=== PATIENT | female | born 1995 | race Caucasian/White ===

== ENCOUNTER 2016-11-03 15:17 | Emergency (ER) | payer SELFPAY ==
[2016-11-03 15:19] VITALS: BP 122/67; PULSE 89; RESP 12; TEMP 98; O2SAT 98
--- NOTE | 2016-11-03 16:20 | PD ---
HPI Chief Complaint: Medication Refill Request Time Seen by Provider: 16:14 Travel History International Travel<30 days: No Contact w/Intl Traveler<30days: No Traveled to known affect area: No History of Present Illness HPI Patient comes requesting refills of her psychiatric medications that she only recently relocated to the area and is unable get into [facility] until the third of next month. Patient states she has tried to go there as a walk-in multiple occasions is not been able be seen. Patient she is on medications for anxiety and depression. Patient reports her medications are Celexa 40 mg daily , Vistaril 25 mg every 4 hours when necessary anxiety, and trazodone 50 mg at night to help her sleep. Denies any chest pain, shortness breath, fevers, nausea, vomiting, abdominal pain, or . PFSH Past Medical History Anxiety: Yes Depression: Yes ?: Not Social History Alcohol Use: No Tobacco Use: Yes Substance Use: No (reformed) Allergies-Medications (Allergen,Severity, Reaction): Coded Allergies: Sulfa (Verified Allergy, Severe, Anaphylaxis, 11/03/16) Reported Meds & Prescriptions Reported Meds & Active Scripts Active Trazodone (Trazodone HCl) 50 Mg Tab 50 Mg PO HS Vistaril (Hydroxyzine Pamoate) 25 Mg Cap 25 Mg PO Q6H PRN Celexa (Citalopram Hydrobromide) 40 Mg Tab 40 Mg PO DAILY Review of Systems Except as stated in HPI: all other systems reviewed are Neg Physical Exam Narrative GENERAL: Well-developed, well nourished, in no acute distress, and non-ill appearing. SKIN: Warm and dry. HEAD: Atraumatic. Normocephalic. EYES: Pupils equal and round. EOMI. No scleral icterus. No injection or drainage. ENT: No nasal bleeding or discharge. Mucous membranes pink and moist. NECK: Trachea midline. Supple. No nuclear rigidity. RESPIRATORY: No accessory muscle use. No respiratory distress. MUSCULOSKELETAL: No obvious deformities. No clubbing. No cyanosis. No edema. Full range of motion. NEUROLOGICAL: Awake and alert. No obvious cranial nerve deficits. Motor grossly within normal limits. Normal speech. PSYCHIATRIC: Appropriate mood and affect; insight and judgment normal. Data Data Last Documented VS Vital Signs Date Time Temp Pulse Resp B/P Pulse Ox O2 Delivery O2 Flow Rate FiO2 1/10/17 15:19 98.0 89 12 122/67 98 Room Air MDM Medical Decision Making Medical Screen Exam Complete: Yes Emergency Medical Condition: No Differential Diagnosis Anxiety, depression, medication refill, other Narrative Course Patient in no obvious distress upon re-evaluation. Patient was asked if they wanted to speak to my attending, which the patient did not wish to do at this time. Any questions/concerns in reference to patient diagnosis/condition discussed and clarified prior to patient's discharge. Reinforced sheer importance of close follow up with patient's primary physician or primary care clinic. Instructed patient to return to ED immediately, if symptoms return/ worsen. Pt showed understanding of above instructions. Further instructions and recommendations were detailed in discharge paperwork. Pt ambulated without difficulty out of ED at discharge. Diagnosis Primary Impression: Medication refill Referrals: [facility] Patient Instructions: General Instructions, Medication Refill, ED Additional Instructions: Follow-up with Derek Camacho as scheduled and for additional refills. Take all medication as prescribed. Return to the emergency department if symptoms get worse. Med/Other Pt SpecificInfo: Prescription(s) given Scripts Trazodone 50 Mg Tab50 Mg PO HS #15 TAB Ref 0 Prov:Tasha Pavon MD 11/03/16 Hydroxyzine Pamoate (Vistaril)25 Mg Cap25 Mg PO Q6H PRN (ANXIETY) #30 CAP Ref 0 Prov:Tasha Pavon MD 11/03/16 Citalopram (Celexa)40 Mg Tab40 Mg PO DAILY #30 TAB Ref 0 Prov:Tasha Pavon MD 11/03/16 Disposition: 01 DISCHARGE HOME Condition: Stable Milan Lopez Nov 03, 2016 16:20
[2016-11-03] MEDS ORDERED: VIST25CA PO (16:22)
[2016-11-03] MEDS ORDERED: TRAZ50TA12 PO (16:22)
[2016-11-03] MEDS ORDERED: CELE40TA PO (16:22)
== END 2016-11-03 16:37 | disposition home or self-care (01) ==
LOC: NEPB 15:17
DX: F32.9 Major depressive disorder, single episode, unspecified (principal); F41.9 Anxiety disorder, unspecified; Z76.0 Encounter for issue of repeat prescription
CPT/HCPCS: 99281

== ENCOUNTER 2017-10-27 18:50 | Emergency (ER) | payer MEDICAID ==
[~2017-10-27] VITALS: Ht 167.6 cm; Wt 68.2 kg
[~2017-10-27 18:50] MED LIST: CELE40TA PO; TRAZ50TA12 PO; VIST25CA PO
[2017-10-27 18:59] VITALS: BP 143/65; PULSE 80; RESP 16; TEMP 98.7; O2SAT 99
--- NOTE | 2017-10-27 19:49 | PD ---
HPI Chief Complaint: Related Problem Time Seen by Provider: 19:49 Travel History International Travel<30 days: No Contact w/Intl Traveler<30days: No Traveled to known affect area: No History of Present Illness HPI 22-year-old female who is approximately 11 weeks gestation presents to emergency department for evaluation of vaginal spotting yesterday and some today. Patient did have intercourse last evening. Denies any heavy bleeding. No significant abdominal cramping or pain. Denies any urinary symptoms. No recent illnesses, fever, or chills. Patient has no other vaginal discharge. Patient has no other symptoms to report at this time. PFS Past Medical History Anxiety: Yes Depression: Yes ?: Social History Alcohol Use: No Tobacco Use: Yes Substance Use: No (reformed) Allergies-Medications (Allergen,Severity, Reaction): Coded Allergies: Sulfa (Sulfonamide Antibiotics) (Unverified Allergy, Severe, Anaphylaxis, 06/08/17) Reported Meds & Prescriptions Reported Meds & Active Scripts Active Trazodone (Trazodone HCl) 50 Mg Tab 50 Mg PO HS Vistaril (Hydroxyzine Pamoate) 25 Mg Cap 25 Mg PO Q6H PRN Celexa (Citalopram Hydrobromide) 40 Mg Tab 40 Mg PO DAILY Review of Systems Except as stated in HPI: all other systems reviewed are Neg Physical Exam Narrative GENERAL: Well-nourished, well-developed female patient, ambulatory and in no acute distress. SKIN: Focused skin assessment warm/dry. HEAD: Normocephalic. EYES: No scleral icterus. No injection or drainage. NECK: Supple, trachea midline. No JVD or lymphadenopathy. CARDIOVASCULAR: Regular rate and rhythm without murmurs, gallops, or rubs. RESPIRATORY: Breath sounds equal bilaterally. No accessory muscle use. GASTROINTESTINAL: Abdomen soft, non-tender, nondistended. No guarding. No rebound tenderness. GENITOURINARY: Normal external genitalia without lesions or erythema. Vaginal vault without blood or drainage. Cervical os was closed without drainage. No cervical motion tenderness. Uterus nontender and nonenlarged. Bilateral adnexa nontender without masses. MUSCULOSKELETAL: No cyanosis, or edema. BACK: Nontender without obvious deformity. No CVA tenderness. Data Data Last Documented VS Vital Signs Date Time Temp Pulse Resp B/P (MAP) Pulse Ox O2 Delivery O2 Flow Rate FiO2 1/3/18 22:30 10/27/17 18:59 98.7 80 16 99 Orders Orders Beta Hcg (Quant/Titer) (10/27/17 19:03) Complete Blood Count With Diff (10/27/17 19:03) Basic Metabolic Panel (Bmp) (10/27/17 19:03) Complete Rh (10/27/17 19:03) Urinalysis - C+S If Indicated (10/27/17 19:03) Ed Urine Pregnancytest Poc (10/27/17 19:03) Gc And Chlamydia Pcr (10/27/17 19:53) Wet Prep Profile (10/27/17 19:53) Us Pelvis (Ques Pr/Ect)W Trans (10/27/17 ) Ed Discharge Order (10/27/17 22:27) Labs Laboratory Tests Test 10/27/17 19:32 10/27/17 19:52 10/27/17 20:20 10/27/17 20:22 Urine Color YELLOW Urine Turbidity HAZY Urine pH 7.0 Urine Specific Rupert 1.014 Urine Protein NEG mg/dL Urine Glucose (UA) NEG mg/dL Urine Ketones NEG mg/dL Urine Occult Blood NEG Urine Nitrite NEG Urine Bilirubin NEG Urine Urobilinogen LESS THAN 2.0 MG/DL Urine Leukocyte Esterase NEG Urine RBC 6 /hpf Urine WBC 3 /hpf Urine Squamous Epithelial Cells 4 /hpf Urine Bacteria OCC /hpf Urine Mucus FEW /lpf Microscopic Urinalysis Comment CULT NOT INDICATED White Blood Count 9.5 TH/MM3 Red Blood Count 3.97 MIL/MM3 Hemoglobin 12.5 GM/DL Hematocrit 36.1 % Mean Corpuscular Volume 91.0 FL Mean Corpuscular Hemoglobin 31.5 PG Mean Corpuscular Hemoglobin Concent 34.6 % Red Cell Distribution Width 12.8 % Platelet Count 224 TH/MM3 Mean Platelet Volume 7.8 FL Neutrophils (%) (Auto) 64.4 % Lymphocytes (%) (Auto) 24.5 % Monocytes (%) (Auto) 5.7 % Eosinophils (%) (Auto) 4.8 % Basophils (%) (Auto) 0.6 % Neutrophils # (Auto) 6.1 TH/MM3 Lymphocytes # (Auto) 2.3 TH/MM3 Monocytes # (Auto) 0.5 TH/MM3 Eosinophils # (Auto) 0.5 TH/MM3 Basophils # (Auto) 0.1 TH/MM3 CBC Comment DIFF FINAL Differential Comment Blood Urea Nitrogen 6 MG/DL Creatinine 0.52 MG/DL Random Glucose 115 MG/DL Calcium Level 9.0 MG/DL Sodium Level 137 MEQ/L Potassium Level 3.6 MEQ/L Chloride Level 104 MEQ/L Carbon Dioxide Level 23.6 MEQ/L Anion Gap 9 MEQ/L Estimat Glomerular Filtration Rate 147 ML/MIN Human Chorionic Gonadotropin, Quant 43611 MIU/ML Chlamydia trachomatis DNA (PCR) NOT DETECTED Neisseria gonorrhoeae DNA (PCR) NOT DETECTED Clue Cells (Wet Prep) NONE SEEN Vaginal Trichomonas (Wet Prep) NONE SEEN Vaginal Yeast (Wet Prep) NONE SEEN MDM Medical Decision Making Medical Screen Exam Complete: Yes Emergency Medical Condition: Yes Medical Record Reviewed: Yes Differential Diagnosis Postcoital bleeding versus vaginal bleeding versus threatened miscarriage versus missed Narrative Course 22-year-old female presents to emergency department for evaluation of vaginal spotting yesterday and today, 2 separate incidents. On pelvic exam, there is no blood in the vaginal vault. Cervical os is closed. Lab work is ordered as well as ultrasound. Laboratory Tests Test 10/27/17 19:32 10/27/17 19:52 10/27/17 20:20 10/27/17 20:22 Urine Color YELLOW Urine Turbidity HAZY Urine pH 7.0 Urine Specific Rupert 1.014 Urine Protein NEG mg/dL Urine Glucose (UA) NEG mg/dL Urine Ketones NEG mg/dL Urine Occult Blood NEG Urine Nitrite NEG Urine Bilirubin NEG Urine Urobilinogen LESS THAN 2.0 MG/DL Urine Leukocyte Esterase NEG Urine RBC 6 /hpf Urine WBC 3 /hpf Urine Squamous Epithelial Cells 4 /hpf Urine Bacteria OCC /hpf Urine Mucus FEW /lpf Microscopic Urinalysis Comment CULT NOT INDICATED White Blood Count 9.5 TH/MM3 Red Blood Count 3.97 MIL/MM3 Hemoglobin 12.5 GM/DL Hematocrit 36.1 % Mean Corpuscular Volume 91.0 FL Mean Corpuscular Hemoglobin 31.5 PG Mean Corpuscular Hemoglobin Concent 34.6 % Red Cell Distribution Width 12.8 % Platelet Count 224 TH/MM3 Mean Platelet Volume 7.8 FL Neutrophils (%) (Auto) 64.4 % Lymphocytes (%) (Auto) 24.5 % Monocytes (%) (Auto) 5.7 % Eosinophils (%) (Auto) 4.8 % Basophils (%) (Auto) 0.6 % Neutrophils # (Auto) 6.1 TH/MM3 Lymphocytes # (Auto) 2.3 TH/MM3 Monocytes # (Auto) 0.5 TH/MM3 Eosinophils # (Auto) 0.5 TH/MM3 Basophils # (Auto) 0.1 TH/MM3 CBC Comment DIFF FINAL Differential Comment Blood Urea Nitrogen 6 MG/DL Creatinine 0.52 MG/DL Random Glucose 115 MG/DL Calcium Level 9.0 MG/DL Sodium Level 137 MEQ/L Potassium Level 3.6 MEQ/L Chloride Level 104 MEQ/L Carbon Dioxide Level 23.6 MEQ/L Anion Gap 9 MEQ/L Estimat Glomerular Filtration Rate 147 ML/MIN Human Chorionic Gonadotropin, Quant 96274 MIU/ML Chlamydia trachomatis DNA (PCR) NOT DETECTED Neisseria gonorrhoeae DNA (PCR) NOT DETECTED Clue Cells (Wet Prep) NONE SEEN Vaginal Trichomonas (Wet Prep) NONE SEEN Vaginal Yeast (Wet Prep) NONE SEEN Last Impressions Pelvis Ultrasound 10/27/17 0000 Signed Impressions: Service Date/Time: Friday, October 27, 2017 21:09 - CONCLUSION: demise. KRuby Cox MD I have discussed the findings with my attending physician and then I discussed them with the patient. I have reviewed with her what to expect. Patient appears to be in a state of shock with very abrupt responses and requesting to leave. I have given her the [employer] educational speech language clinician's information and encouraged prompt follow-up. She agrees to return immediately with any acute worsening of symptoms. Diagnosis Primary Impression: demise before 20 weeks with retention of fetus Referrals: Clarke Granado MD Chipping Machine Operator Patient Instructions: General Instructions, Intrauterine Demise (ED) Additional Instructions: Follow-up with [employer] [employer] [facility]ARE SYSTEM[employer] this week; call for an appointment Return immediately to the emergency department with any acute worsening symptoms Disposition: 01 DISCHARGE HOME Condition: Stable Marlee Archuleta Oct 27, 2017 19:49
[2017-10-27 20:37] LABS: BACTERIA, URINE OCC /hpf; BILIRUBIN, URINE NEG (NEG); BLOOD, URINE NEG (NEG); GLUCOSE,URINE NEG (NEG); KETONE, URINE NEG (NEG); MUCUS URINE FEW /lpf (OCC); NITRITE,URINE NEG (NEG); SQUAMOUS EPITHELIAL CELL URINE 4 /hpf (0-5); URINE COLOR YELLOW (YELLW/STRAW); URINE LEUKOCYTE ESTERASE NEG (NEG)
[2017-10-27 20:40] LABS: AUTOMATED NEUTROPHIL # 6.1 TH/MM3 (1.8-7.7); BASOPHIL # 0.1 TH/MM3 (0-0.2); BASOPHIL % 0.6 % (0.0-2.0); EOSINOPHIL # 0.5 TH/MM3 (0-0.4); EOSINOPHIL % 4.8 % (0.0-4.0); HEMATOCRIT 36.1 % (35.0-46.0); HEMOGLOBIN 12.5 GM/DL (11.6-15.3); LYMPH % 24.5 % (9.0-44.0); LYMPHOCYTE # 2.3 TH/MM3 (1.0-4.8); MEAN CORPUSCULAR HEMOGLOBIN 31.5 PG (27.0-34.0); MEAN CORPUSCULAR HGB CONC 34.6 % (32.0-36.0); MEAN PLATELET VOLUME 7.8 FL (7.0-11.0); MONO % 5.7 % (0.0-8.0); MONOCYTE # 0.5 TH/MM3 (0-0.9); NEUT % 64.4 % (16.0-70.0); PLATELET COUNT 224 TH/MM3 (150-450); RED BLOOD COUNT 3.97 MIL/MM3 (4.00-5.30); RED CELL DISTRIBUTION WIDTH 12.8 % (11.6-17.2); WHITE BLOOD COUNT 9.5 TH/MM3 (4.0-11.0)
[2017-10-27 21:45] LABS: BICARBONATE 23.6 MEQ/L (21.0-32.0); CREATININE 0.52 MG/DL (0.50-1.00)
--- NOTE | 2017-10-27 22:17 | RADRPT ---
EXAM DATE/TIME: 10/27/2017 21:09 [place] COMPARISON: No previous studies available for comparison. INDICATIONS : Bleeding. LAB(S): Beta-hC MEDICAL HISTORY : Depression. Anxiety. Substance abuse. Tobacco use. SURGICAL HISTORY : None. ENCOUNTER: Initial ACUITY: 2 days PAIN SCORE: 0/10 LOCATION: Bilateral pelvis MEASUREMENTS: UTERUS: 11.4 x 9.0 x 6.2 cm ENDOMETRIAL STRIPE: >20 mm RIGHT OVARY: 2.3 x 2.7 x 1.4 cm LEFT OVARY: 3.2 x 2.6 x 1.4 cm FREE FLUID: No CROWN RUMP LENGTH: 2.5 = 9 WKS 1 DAYS FINDINGS: Intrauterine gestational sac is present measures 4.7 cm corresponds to 10 weeks and 3 days. [place] lum p length corresponds to 9 weeks and one day and there is no heart beat. CONCLUSION: demise. Barbara Cox MD on October 27, 2017 at 22:13 Board Certified Radiologist. This report was verified electronically.
[2017-10-29] MEDS ORDERED: IBUP-232 PO (17:12)
== END 2017-10-27 22:40 | disposition home or self-care (01) ==
LOC: NEPD 18:50
DX: O02.1 Missed abortion (principal); O99.331 Smoking (tobacco) complicating pregnancy, first trimester; Z3A.11 11 weeks gestation of pregnancy
CPT/HCPCS: 76700; 76817; 80048; 81001; 84702; 84703; 85025; 86901; 87210; 87491; 87591; 99285

== ENCOUNTER → 2017-10-29 | Day surgery (SDC) | payer MEDICAID ==
[~2017-10-29] VITALS: Ht 167.6 cm; Wt 69.5 kg
[~2017-10-29] MED LIST changes: +*MEPERIDINE 25 MG INJ VIAL PERIprocedural Use ONLY ONE; +*morphine SULFATE 4 MG/ML PERIprocedure ONLY ONE; +ACETAMINOPHEN 1000 MG/100 ML 100 ML IV ONE; +CHLORHEXIDINE GLUCONATE 2 % 1 PACK (2 CLOTHS) TOPICAL PRN; +DEXAMETHASONE SOD PHOS 4 MG/ML VIAL IV ONE; +DO NOT ADM ANY ANTICOAGULANT DRUGS PRN; +IBUP-232 PO; +IBUPROFEN 600 MG TAB PO ONE; +LACTATED RINGER'S 1000 ML IV PRN; +LIDOCAINE HCL 1% PF 5 ML SYRINGE OTHER ONE; +MEPERIDINE HCL 50 MG/ML VIAL IM PRN; +METOPROLOL TARTRATE 25 MG TAB PO PRN; +MIDAZOLAM HCL 2 MG/2 ML VIAL ONE; +MORPHINE SULFATE 4 MG/ML INJ ONE; +ONDANSETRON HCL 4 MG/2 ML VIAL IV PUSH ONE; +ONDANSETRON HCL 4 MG/2 ML VIAL IV PUSH PRN; +OXYTOCIN 10 UNIT/ML AMP ONE; +POVIDONE IODINE 5% (ANTISEPSIS KIT) 4 APPLICATIONS EACH NARE PRN; +PROPOFOL 200 MG/20 ML AMP IV ONE; +SODIUM CHLORID 0.9% 500 ML IV PRN; +ceFAZolin 1,000 MG/NS 100 ML IV SCH
--- NOTE | 2017-10-29 12:09 | MH ---
cc: CONNIE MEJIAS DATE OF ADMISSION: 10/29/2017 CHIEF COMPLAINT Missed AB. HISTORY OF PRESENT CONDITION The patient is a 22-year-old single white female, 1, para 0, who would be 11-5/7 weeks by LMP but has a nonviable, 9-week gestation without a heartbeat. This was diagnosed in the emergency room two days ago and then she came to our office today. 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 She denies any history of IV drug abuse. She historically has snorted these illicit substances. She did have two episodes of single-time use, one a month ago and one several months ago. PAST MEDICAL HISTORY She has had a history of kidney stones and lithotripsy. SOCIAL HISTORY She smokes 1/2-pack of cigarettes per day. She denies any alcohol use. She does not think she has hepatitis C. 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 REVIEW OF SYSTEMS She has been n.p.o. since last night. She has had no recent colds or infections. She does desire contraception as this was not a planned . She is not bleeding actively at this time. She is not having cramping at this time. PHYSICAL EXAMINATION VITAL SIGNS: Her weight is 150. Her height is 5'6", her blood pressure is 120/80. NECK: She has no thyroid enlargement. LUNGS: Clear. HEART: Rate and rhythm are regular. PELVIC EXAM: Consistent with the ultrasound done in our office today with a closed cervix, a 10-week fundus and no heart rate. EXTREMITIES: Unremarkable. IMPRESSION A 22-year-old with missed AB. SECONDARY DIAGNOSIS Opioid dependency, currently attempting abstinence-based living. PLAN 1. Proceed with a D&C. 2. We will do labs for Rh typing and hepatitis C, urine drug screen. 3. After the D&C she will follow up in my office for contraception and to further discuss abstinence-based versus medication-based recovery. Connie Mejias MD PPC/SSB /11:37 AM /11:41 AM
[2017-10-29 15:37] LABS: AUTOMATED NEUTROPHIL # 6.9 TH/MM3 (1.8-7.7); BASOPHIL # 0.1 TH/MM3 (0-0.2); EOSINOPHIL # 0.3 TH/MM3 (0-0.4); EOSINOPHIL % 3.5 % (0.0-4.0); HEMOGLOBIN 13.5 GM/DL (11.6-15.3); LYMPH % 19.5 % (9.0-44.0); LYMPHOCYTE # 1.9 TH/MM3 (1.0-4.8); MEAN CELL VOLUME 91.8 FL (80.0-100.0); MEAN CORPUSCULAR HEMOGLOBIN 31.1 PG (27.0-34.0); MEAN CORPUSCULAR HGB CONC 33.8 % (32.0-36.0); MEAN PLATELET VOLUME 8.3 FL (7.0-11.0); MONO % 5.3 % (0.0-8.0); MONOCYTE # 0.5 TH/MM3 (0-0.9); NEUT % 70.7 % (16.0-70.0); PLATELET COUNT 231 TH/MM3 (150-450); RED BLOOD COUNT 4.36 MIL/MM3 (4.00-5.30); WHITE BLOOD COUNT 9.8 TH/MM3 (4.0-11.0)
[2017-10-29 15:51] LABS: AMORPHOUS SEDIMENT, URINE RARE; BACTERIA, URINE OCC /hpf; BILIRUBIN, URINE NEG (NEG); BLOOD, URINE NEG (NEG); GLUCOSE,URINE NEG (NEG); KETONE, URINE 10 mg/dL (NEG); MUCUS URINE FEW /lpf (OCC); NITRITE,URINE NEG (NEG); PH, URINE 6.5 (5.0-8.5); SQUAMOUS EPITHELIAL CELL URINE 4 /hpf (0-5); URINE COLOR YELLOW (YELLW/STRAW); URINE LEUKOCYTE ESTERASE NEG (NEG)
[2017-10-29 16:05] LABS: TOTAL BILIRUBIN ADULT 0.5 MG/DL (0.2-1.0); TOTAL PROTEIN 8.1 GM/DL (6.4-8.2)
[2017-10-29 16:07] LABS: ALBUMIN 4.6 GM/DL (3.4-5.0); DIRECT BILIRUBIN ADULT 0.2 MG/DL (0.0-0.2); INDIRECT BILIRUBIN 0.3 MG/DL (0.0-0.8)
--- NOTE | 2017-10-29 17:10 | PD.OP ---
Operative Report Date of Surgery: Oct 29, 2017 Preoperative Diagnosis: missed Postoperative Diagnosis: missed Procedure: dilation with sharp and suction currettage Anesthesia: GET Surgeon: Vansesa Kenney Script Supervisor(s): OR staff Operation and Findings: POCs op note dictated EBL 250 cc RH+ Vanessa Kenney MD Oct 29, 2017 17:10
--- NOTE | 2017-10-29 17:12 | HHI.DCPOC ---
Discharge Care Plan Report Symptoms to Your Doctor -Temperature above 100.5 degrees -Redness, of incision or excessive or foul smelling drainage -Unusual pain or calf pain -Increased vaginal bleeding -Painful or difficulty urinating -Feelings of extreme sadness or anxiety after 2 weeks Goals to Promote Your Health * To prevent worsening of your condition and complications * To maintain your health at the optimal level Directions to Meet Your Goals Take your medications as prescribed Follow your dietary instruction Follow activity as directed Ensure plenty of rest for recovery Drink fluids for hydration Keep your appointments as scheduled Take your immunizations and boosters as scheduled If your symptoms worsen call your PCP, if no PCP go to Urgent Care Center or Emergency Room Smoking is Dangerous to Your Health. Avoid second hand smoke Call the 24-hour crisis hotline for domestic abuse at Vanessa Kenney MD Oct 29, 2017 17:12
--- NOTE | 2017-10-29 17:47 | MP ---
cc: CONNIE MEJIAS DATE OF SURGERY 10/29/17 PREOPERATIVE DIAGNOSIS Missed AB POSTOPERATIVE DIAGNOSIS Missed AB PROCEDURE Dilation and suction and sharp curettage ANESTHESIA General SURGEON Talya Mejias MD C CONSULTANT OR staff FINDINGS There were significant products of conception with 250 mL blood loss. PROCEDURE IN DETAIL The patient had been seen in the office this morning and scheduled for D&C. She was in preop where we reviewed the procedure. She was taken to the OR, placed under general anesthesia in the dorsal lithotomy position. A red rubber catheter was used for catheterization. She was given 1 gram of Ancef. A time-out was performed. She was prepped and draped in usual sterile fashion. Cervix was grasped with a single-tooth tenaculum after examination under anesthesia confirmed a 12-week size uterus. The cervix was dilated to allow the size eight suction curette into the intrauterine cavity and a significant amount of products of conception was obtained. A banjo curette was used to make sure that all products were removed and placental forceps were also used. A final pass of the suction curette was done, although there was some brisk bleeding initially it was negligible at the end. The uterus was massaged rigorously after the single-tooth was removed. There was no further bleeding. She was placed in dorsal supine position, awaken and taken to the recovery room in stable condition. Her blood type is Rh positive and her hemoglobin had been 13. She will be given Motrin to take home and follow up with me in the office. Connie Mejias MD PPC/SA /5:07 PM /5:15 PM
[2017-10-29 18:23] VITALS: BP 113/58; PULSE 80; RESP 16; TEMP 98; O2SAT 100
== END | disposition home or self-care (01) ==
LOC: HSDC 13:54
PROVIDERS: ATTEND Obstetrics & Gynecology
DX: O02.1 Missed abortion (principal); Z3A.09 9 weeks gestation of pregnancy; F11.20 Opioid dependence, uncomplicated; F17.210 Nicotine dependence, cigarettes, uncomplicated; Z01.818 Encounter for other preprocedural examination
CPT/HCPCS: 01965; 59820; 80076; 80307; 81001; 85025; 86850; 86900; 86901; 88305; J0131; J0690; J1100; J2175; J2250; J2270; J2405; J2590; J3010; J7120

== ENCOUNTER 2017-11-25 11:00 | Emergency (ER) | payer MEDICAID ==
[~2017-11-25] VITALS: Ht 167.6 cm; Wt 64.5 kg
[~2017-11-25 11:00] MED LIST changes: -*MEPERIDINE 25 MG INJ VIAL PERIprocedural Use ONLY ONE; -*morphine SULFATE 4 MG/ML PERIprocedure ONLY ONE; -ACETAMINOPHEN 1000 MG/100 ML 100 ML IV ONE; -CHLORHEXIDINE GLUCONATE 2 % 1 PACK (2 CLOTHS) TOPICAL PRN; -DEXAMETHASONE SOD PHOS 4 MG/ML VIAL IV ONE; -DO NOT ADM ANY ANTICOAGULANT DRUGS PRN; -IBUPROFEN 600 MG TAB PO ONE; -LACTATED RINGER'S 1000 ML IV PRN; -LIDOCAINE HCL 1% PF 5 ML SYRINGE OTHER ONE; -MEPERIDINE HCL 50 MG/ML VIAL IM PRN; -METOPROLOL TARTRATE 25 MG TAB PO PRN; -MIDAZOLAM HCL 2 MG/2 ML VIAL ONE; -MORPHINE SULFATE 4 MG/ML INJ ONE; -ONDANSETRON HCL 4 MG/2 ML VIAL IV PUSH ONE; -ONDANSETRON HCL 4 MG/2 ML VIAL IV PUSH PRN; -OXYTOCIN 10 UNIT/ML AMP ONE; -POVIDONE IODINE 5% (ANTISEPSIS KIT) 4 APPLICATIONS EACH NARE PRN; -PROPOFOL 200 MG/20 ML AMP IV ONE; -SODIUM CHLORID 0.9% 500 ML IV PRN; -ceFAZolin 1,000 MG/NS 100 ML IV SCH
[2017-11-25 11:04] VITALS: BP 108/57; PULSE 78; RESP 16; TEMP 98.5; O2SAT 99
[2017-11-25] MEDS ORDERED: KETOROLAC TROMETHAMINE 30 MG/ML (IVP) VIAL IV PUSH ONE (12:00)
[2017-11-25 12:35] LABS: AUTOMATED NEUTROPHIL # 2.4 TH/MM3 (1.8-7.7); BASOPHIL # 0.1 TH/MM3 (0-0.2); BASOPHIL % 1.2 % (0.0-2.0); EOSINOPHIL # 0.6 TH/MM3 (0-0.4); EOSINOPHIL % 10.9 % (0.0-4.0); HEMATOCRIT 38.9 % (35.0-46.0); HEMOGLOBIN 13.5 GM/DL (11.6-15.3); LYMPH % 35.7 % (9.0-44.0); MEAN CELL VOLUME 90.9 FL (80.0-100.0); MEAN CORPUSCULAR HEMOGLOBIN 31.7 PG (27.0-34.0); MEAN CORPUSCULAR HGB CONC 34.8 % (32.0-36.0); MEAN PLATELET VOLUME 8.2 FL (7.0-11.0); MONO % 9.6 % (0.0-8.0); MONOCYTE # 0.5 TH/MM3 (0-0.9); NEUT % 42.6 % (16.0-70.0); PLATELET COUNT 219 TH/MM3 (150-450); RED BLOOD COUNT 4.28 MIL/MM3 (4.00-5.30); RED CELL DISTRIBUTION WIDTH 12.6 % (11.6-17.2); WHITE BLOOD COUNT 5.6 TH/MM3 (4.0-11.0)
[2017-11-25 12:36] LABS: BACTERIA, URINE MOD /hpf; BILIRUBIN, URINE NEG (NEG); BLOOD, URINE NEG (NEG); GLUCOSE,URINE NEG (NEG); KETONE, URINE NEG (NEG); NITRITE,URINE NEG (NEG); SQUAMOUS EPITHELIAL CELL URINE 1 /hpf (0-5); URINE COLOR LIGHT-YELLOW (YELLW/STRAW); URINE LEUKOCYTE ESTERASE NEG (NEG)
[2017-11-25 12:54] LABS: ALBUMIN 4.8 GM/DL (3.4-5.0); ALT (GPT) 19 U/L (10-53); AST (GOT) 16 U/L (15-37); BICARBONATE 25.9 MEQ/L (21.0-32.0); BLOOD UREA NITROGEN 7 MG/DL (7-18); CALCIUM 9.6 MG/DL (8.5-10.1); CHLORIDE 107 MEQ/L (98-107); CREATININE 0.64 MG/DL (0.50-1.00); GLOMERULAR FILTRATION RATE 116 ML/MIN (>89); GLUCOSE,RANDOM 85 MG/DL (74-106); SODIUM (NA) 140 MEQ/L (136-145)
[2017-11-25 12:57] LABS: ALKALINE PHOSPHATASE 72 U/L (45-117); TOTAL BILIRUBIN ADULT 0.4 MG/DL (0.2-1.0); TOTAL PROTEIN 8.6 GM/DL (6.4-8.2)
[2017-11-25] MEDS ORDERED: MORPHINE SULFATE 2 MG/ML INJ IV PUSH ONE (13:15)
--- NOTE | 2017-11-25 13:50 | PD ---
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 She denies any vomiting, fevers or chills. She has never had pain like this before. PFSH Past Medical History Anxiety: Yes Depression: Yes Cancer: No Cardiovascular Problems: No Diabetes: No Endocrine: No Genitourinary: No Hepatitis: No Hiatal Hernia: No Immune Disorder: No Musculoskeletal: No Neurologic: No Psychiatric: No Reproductive: No Respiratory: No Thyroid Disease: No ?: Not Miscarriage: 1 Dilation and Curettage (D&C): Yes (11/11) Past Surgical History Abdominal Surgery: No Body Medical Devices: NONE Cardiac Surgery: No Ear Surgery: No Endocrine Surgery: No Eye Surgery: No Genitourinary Surgery: Yes (LITHOTRIPSY X 2) Gynecologic Surgery: No Oral Surgery: No Thoracic Surgery: No Social History Alcohol Use: No Tobacco Use: Yes (2-3 PER DAY) Substance Use: No Allergies-Medications (Allergen,Severity, Reaction): Coded Allergies: Sulfa (Sulfonamide Antibiotics) (Unverified Allergy, Severe, Anaphylaxis, 11/25/17) Reported Meds & Prescriptions Reported Meds & Active Scripts Active Ibuprofen 600 Mg Tab 600 Mg PO Q6H PRN Trazodone (Trazodone HCl) 50 Mg Tab 50 Mg PO HS Vistaril (Hydroxyzine Pamoate) 25 Mg Cap 25 Mg PO Q6H PRN Celexa (Citalopram Hydrobromide) 40 Mg Tab 40 Mg PO DAILY Review of Systems Except as stated in HPI: all other systems reviewed are Neg Physical Exam Narrative GENERAL:Well appearing, no acute distress SKIN: Focused skin assessment warm and dry. HEAD: Atraumatic. Normocephalic. EYES: Pupils equal and round. No injection or drainage. ENT: Moist mucous membranes NECK: Trachea midline. CARDIOVASCULAR: Regular rate and rhythm. No murmur appreciated. RESPIRATORY: Clear to auscultation. Breath sounds equal bilaterally. GASTROINTESTINAL: Abdomen soft, mildly tender to palpation in the left lower quadrant with no rebound or guarding. [employer] D[employer]: scant white discharge in the vault, left adnexal tenderness present MUSCULOSKELETAL: No obvious deformities. NEUROLOGICAL: Awake and alert. No obvious cranial nerve deficits. Moving all extremities. PSYCHIATRIC: Appropriate mood and affect; insight and judgment normal. Data Data Last Documented VS Vital Signs Date Time Temp Pulse Resp B/P (MAP) Pulse Ox O2 Delivery O2 Flow Rate FiO2 11/25/17 11:04 98.5 78 16 108/57 (74) 99 Orders Orders Complete Blood Count With Diff (11/25/17 11:48) Comprehensive Metabolic Panel (11/25/17 11:48) Urinalysis - C+S If Indicated (11/25/17 11:48) Ed Urine Pregnancytest Poc (11/25/17 11:48) Ketorolac Inj (Toradol Inj) (11/25/17 12:00) Urine Culture (11/25/17 12:05) Us Pelvis Comp W Dop Transvag (11/25/17 ) Morphine Inj (Morphine Inj) (11/25/17 13:15) Labs Laboratory Tests Test 11/25/17 12:05 White Blood Count 5.6 TH/MM3 Red Blood Count 4.28 MIL/MM3 Hemoglobin 13.5 GM/DL Hematocrit 38.9 % Mean Corpuscular Volume 90.9 FL Mean Corpuscular Hemoglobin 31.7 PG Mean Corpuscular Hemoglobin Concent 34.8 % Red Cell Distribution Width 12.6 % Platelet Count 219 TH/MM3 Mean Platelet Volume 8.2 FL Neutrophils (%) (Auto) 42.6 % Lymphocytes (%) (Auto) 35.7 % Monocytes (%) (Auto) 9.6 % Eosinophils (%) (Auto) 10.9 % Basophils (%) (Auto) 1.2 % Neutrophils # (Auto) 2.4 TH/MM3 Lymphocytes # (Auto) 2.0 TH/MM3 Monocytes # (Auto) 0.5 TH/MM3 Eosinophils # (Auto) 0.6 TH/MM3 Basophils # (Auto) 0.1 TH/MM3 CBC Comment DIFF FINAL Differential Comment Urine Color LIGHT-YELLOW Urine Turbidity CLEAR Urine pH 7.0 Urine Specific [place] 1.002 Urine Protein NEG mg/dL Urine Glucose (UA) NEG mg/dL Urine Ketones NEG mg/dL Urine Occult Blood NEG Urine Nitrite NEG Urine Bilirubin NEG Urine Urobilinogen LESS THAN 2.0 MG/DL Urine Leukocyte Esterase NEG Urine RBC 1 /hpf Urine WBC 3 /hpf Urine Squamous Epithelial Cells 1 /hpf Urine Bacteria MOD /hpf Microscopic Urinalysis Comment CULTURE INDICATED Blood Urea Nitrogen 7 MG/DL Creatinine 0.64 MG/DL Random Glucose 85 MG/DL Total Protein 8.6 GM/DL Albumin 4.8 GM/DL Calcium Level 9.6 MG/DL Alkaline Phosphatase 72 U/L Aspartate Amino Transf (AST/SGOT) 16 U/L Alanine Aminotransferase (ALT/SGPT) 19 U/L Total Bilirubin 0.4 MG/DL Sodium Level 140 MEQ/L Potassium Level 3.8 MEQ/L Chloride Level 107 MEQ/L Carbon Dioxide Level 25.9 MEQ/L Anion Gap 7 MEQ/L Estimat Glomerular Filtration Rate 116 ML/MIN MDM Medical Decision Making Medical Screen Exam Complete: Yes Emergency Medical Condition: Yes Interpretation(s) No leukocytosis electrolytes reassuring poc preg slightly positive, to be expected in the setting of miscarriage on October 29 Last 24 hours Impressions Abdomen/Pelvis/Transvag US 11/25/17 0000 Signed Impressions: Service Date/Time: November 12:19 - CONCLUSION: 1. 5.2 cm complex left ovarian lesion, likely reflecting a hemorrhagic cyst. Pelvic ultrasound follow-up in 6-12 weeks is recommended for hemorrhagic adnexal cysts 5-7 cm in women of reproductive age. If unchanged or unresolved, follow with contrast-enhanced pelvic MRI or ultrasound. Unless classic endometrioma or dermoid is then confirmed on contrast-enhanced pelvic MRI or ultrasound follow-up, consider surgical consultation. Reference: 2. Ivelisse Bills MD Differential Diagnosis hemorrhagic cyst, ovarian torsion, ectopic Narrative Course This is a 22-year-old female who presents to the emergency department with left- sided pelvic pain that has been going on for 3 days. She had a D&C 3 weeks ago. At that time her beta hCG was 35,000 and she had a demise at 11 weeks with a visible fetus on ultrasound. Patient was placed on a monitor and an IV was established. Labs are reassuring. [id number]-[id number] test was slightly positive which is expected in the setting of recent . Ultrasound demonstrates a 5 cm hemorrhagic cyst which I suspect is the etiology of the patient's pain. Instructions to have repeat ultrasound or imaging in 6- 12 weeks. She has a follow-up appointment with an VARNISH MELTER later this month and advised her to bring her radiology report to that appointment. Patient will check a test in 2 weeks to ensure that repeat test is negative. Diagnosis Primary Impression: Hemorrhagic ovarian cyst Patient Instructions: General Instructions Additional Instructions: If you develop severe or worsening abdominal pain, fever>100.4, persistent vomiting or inability to eat or drink return to the emergency department immediately. You have a 5 cm cyst on ultrasound. They are recommending that you have a repeat ultrasound in 6-12 weeks. Med/Other Pt SpecificInfo: Prescription(s) given Scripts Naproxen (Naproxen) 500 Mg Tab 500 MG PO BID Y for PAIN SCALE 4 TO 10, #20 TAB 0 Refills Prov: Huong Ocasio MD 11/25/17 Hydrocodone/Acetaminophen ([place] 5-325 Tablet) 5 Mg-325 Mg Tablet 1 TAB PO Q6HR Y for PAIN SCALE 4 TO 10, #10 Prov: Huong Ocasio MD 11/25/17 Disposition: 01 DISCHARGE HOME Condition: Stable Huong Ocasio MD Nov 25, 2017 13:50
--- NOTE | 2017-11-25 13:52 | RADRPT ---
EXAM DATE/TIME: 11/25/2017 12:19 [facility] COMPARISON: No previous studies available for comparison. INDICATIONS : Left pelvic pain. MEDICAL HISTORY : Kidney stones. SURGICAL HISTORY : D&C (10/2017). Kidney stones removed. ENCOUNTER: Subsequent ACUITY: 3 days PAIN SCORE: 8/10 LOCATION: Bilateral pelvis MEASUREMENTS: UTERUS: 8.0 x 6.4 x 3.4 cm ENDOMETRIAL STRIPE: 11 mm RIGHT OVARY: 4.2 x 3.0 x 3.0 cm LEFT OVARY: 6.0x 5.3 x 5.0 cm FINDINGS: UTERUS: The myometrium has homogeneous echotexture without mass. RIGHT OVARY: Ovary contains no mass or significant cystic lesion. LEFT OVARY: Complex with diffusely heterogeneous left ovarian lesion measuring 5.2 x 4.0 x 4.2 cm. No focal nodul arity or increased blood flow. Left ovary is otherwise unremarkable. MISCELLANEOUS: Trace free fluid in the cul-de-sac. CONCLUSION: 1. 5.2 cm complex left ovarian lesion, likely reflecting a hemorrhagic cyst. Pelvic ultrasound follow -up in 6-12 weeks is recommended for hemorrhagic adnexal cysts 5-7 cm in women of reproductive age. If unchanged or unresolved, follow with contrast-enhanced pelvic MRI or ultrasound. 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 Reference: 2. Ivelisse Bills MD, et al. Management of Asymptomatic Ovarian and Other Adnexal Cy[facility]: Society of Radiologists in Ultrasound Consensus Conference Statement. Radiology 2010; 256: 943-954. Austin Deng MD on November 25, 2017 at 13:41 Board Certified Radiologist. This report was verified electronically.
[2017-11-25] MEDS ORDERED: NORC5TAB PO (14:10)
[2017-11-25] MEDS ORDERED: NAPR500T2 PO (14:10)
== END 2017-11-25 14:31 | disposition home or self-care (01) ==
LOC: NEPD 11:00
DX: N83.202 Unspecified ovarian cyst, left side (principal); F41.9 Anxiety disorder, unspecified; F32.9 Major depressive disorder, single episode, unspecified; F17.200 Nicotine dependence, unspecified, uncomplicated; Z88.2 Allergy status to sulfonamides; Z79.899 Other long term (current) drug therapy
CPT/HCPCS: 76830; 76856; 80053; 81001; 84703; 85025; 87086; 93975; 96374; 96375; 99285; J1885; J2270

== ENCOUNTER 2018-03-01 09:42 | Emergency (ER) | payer MEDICAID ==
[2018-03-01 10:30] LABS: BETA HCG QUANT 178 MIU/ML (0-5)
[2018-03-01 10:36] LABS: BACTERIA, URINE RARE /hpf; BILIRUBIN, URINE NEG (NEG); BLOOD, URINE NEG (NEG); COMMENT (UR) CULT NOT INDICATED; CULTURE IF INDICATED CULT NOT INDICATED; GLUCOSE,URINE NEG (NEG); HYALINE CAST, URINE 2 /lpf (RARE); KETONE, URINE NEG (NEG); MUCUS URINE MANY /lpf (OCC); NITRITE,URINE NEG (NEG); SQUAMOUS EPITHELIAL CELL URINE 3 /hpf (0-5); URINE COLOR YELLOW (YELLW/STRAW); URINE LEUKOCYTE ESTERASE NEG (NEG)
[2018-03-01 12:21] LABS: CHLAMYDIA PCR NOT DETECTED (NOT DETECT); NEISSERIA PCR NOT DETECTED (NOT DETECT)
== END 2018-03-01 12:28 | disposition home or self-care (01) ==
LOC: NEPD 09:42
DX: O26.891 Other specified pregnancy related conditions, first trimester (principal); R10.32 Left lower quadrant pain; Z3A.01 Less than 8 weeks gestation of pregnancy
CPT/HCPCS: 76700; 76817; 81001; 84702; 87210; 87491; 87591; 99284-25

== ENCOUNTER 2018-03-03 19:09 | Emergency (ER) | payer MEDICAID ==
[~2018-03-03] VITALS: Ht 167.6 cm; Wt 70.0 kg
[2018-03-03 19:34] VITALS: BP 141/61; PULSE 84; RESP 18; TEMP 99; O2SAT 99
--- NOTE | 2018-03-03 21:18 | PD ---
HPI Chief Complaint: Medical Clearance Time Seen by Provider: 21:10 Travel History International Travel<30 days: No Contact w/Intl Traveler<30days: No Traveled to known affect area: No History of Present Illness HPI 22-year-old white female presents emergency department requesting repeat hCG. She states that she was seen in the emergency department 2 days ago on the eighth and was noted to have an early . Her quantitative hCG was 178. She was told to have a repeat level in 2 days. She states that she is not having any cramping, abdominal pain, vaginal discharge or abnormal bleeding. She states that she has an appointment to see a nurse county judge in the next 2-3 weeks. PFSH Past Medical History Anxiety: Yes Depression: Yes Cancer: No Cardiovascular Problems: No Diabetes: No Endocrine: No Gastrointestinal Disorders: No Genitourinary: No Hepatitis: No Hiatal Hernia: No Hypertension: No Immune Disorder: No Kidney Stones: Yes Musculoskeletal: No Neurologic: No Psychiatric: No Reproductive: No Respiratory: No Thyroid Disease: No Tetanus Vaccination: < 5 Years ?: : 2 Miscarriage: 1 Ovarian Cysts: Yes Dilation and Curettage (D&C): Yes (X1) Past Surgical History Abdominal Surgery: No Body Medical Devices: NONE Cardiac Surgery: No Ear Surgery: No Endocrine Surgery: No Eye Surgery: No Genitourinary Surgery: Yes (LITHOTRIPSY X 2) Gynecologic Surgery: No Neurologic Surgery: No Oral Surgery: No Thoracic Surgery: No Other Surgery: Yes (KIDNEY STONES REMOVED) Social History Alcohol Use: No Tobacco Use: No (VAPES) Substance Use: No Allergies-Medications (Allergen,Severity, Reaction): Coded Allergies: Sulfa (Sulfonamide Antibiotics) (Unverified Allergy, Severe, Anaphylaxis, 03/03/18) Reported Meds & Prescriptions Reported Meds & Active Scripts Active No Active Prescriptions or Reported Medications Review of Systems General / Constitutional: No: Fever Eyes: No: Visual changes HENT: No: Headaches Cardiovascular: No: Chest Pain or Discomfort Respiratory: No: Shortness of Breath Gastrointestinal: No: Abdominal Pain Genitourinary: No: Urgency, Frequency, Dysuria, Hematuria, Pelvic Pain, Flank Pain, Discharge, Vaginal Bleeding Musculoskeletal: No: Pain Skin: No Rash Neurologic: No: Weakness Psychiatric: No: Depression Endocrine: No: Polydipsia Hematologic/Lymphatic: No: Easy Bruising Physical Exam Narrative GENERAL: This is a well-nourished, well-developed patient, in no apparent distress. SKIN: No rashes, ecchymoses or lesions. Warm and dry. HEAD: Atraumatic. Normocephalic. EYES: PERRL, EOMI, no discharge or injection. No scleral icterus. EARS: Clear NOSE: Nasal turbinates appear normal. THROAT: Mucosa pink and moist. Airway patent. NECK: Trachea midline. supple, moves head freely. LUNGS: Clear to auscultation. CV: Regular in rhythm. ABDOMEN: Soft nontender. EXT: No clubbing cyanosis or edema. Data Data Last Documented VS Vital Signs Date Time Temp Pulse Resp B/P (MAP) Pulse Ox O2 Delivery O2 Flow Rate FiO2 03/03/18 19:34 99.0 84 18 141/61 (87) 99 Orders Orders Beta Hcg (Quant/Titer) (03/03/18 19:37) Ed Discharge Order (03/03/18 21:13) Labs Laboratory Tests Test 03/03/18 19:45 Human Chorionic Gonadotropin, Quant 494 MIU/ML [facility] Medical Decision Making Medical Screen Exam Complete: Yes Emergency Medical Condition: Yes Medical Record Reviewed: Yes Interpretation(s) Laboratory Tests Test 03/03/18 19:45 Human Chorionic Gonadotropin, Quant 494 MIU/ML Differential Diagnosis Differential diagnosis: Threatened AB, demise, missed AB, normal Narrative Course Patient's repeat quantitative hCG is 494. This has doubled in the last 48 hours. The patient is completely asymptomatic. She is advised to continue her follow-up with her OB. Patient is medically stable for discharge. This a first trimester Diagnosis Primary Impression: First trimester Patient Instructions: General Instructions Additional Instructions: Rest. Increase fluids. Start [id number] vitamins with iron. Follow-up with your OB doctor as scheduled. Return to the ER if any problems. Med/Other Pt SpecificInfo: No Meds Exist/No RX given Scripts No Active Prescriptions or Reported Meds Disposition: 01 DISCHARGE HOME Condition: Stable Ede Raymundo March 03, 2018 21:18
== END 2018-03-03 21:49 | disposition home or self-care (01) ==
LOC: NEPD 19:09
DX: Z34.91 Encounter for supervision of normal pregnancy, unspecified, first trimester (principal); F41.9 Anxiety disorder, unspecified; F32.9 Major depressive disorder, single episode, unspecified; Z87.442 Personal history of urinary calculi; Z88.2 Allergy status to sulfonamides
CPT/HCPCS: 84702; 99281